=== PATIENT | male | born 1935 | race Caucasian/White ===

== ENCOUNTER → 2018-05-10 | Outpatient (CLI) | payer MEDICARE, OTHER | LOC: CFH 14:48 | PROVIDERS: ATTEND Internal Medicine | DX: M51.25 Other intervertebral disc displacement, thoracolumbar region (principal); M48.061 Spinal stenosis, lumbar region without neurogenic claudication; M43.06 Spondylolysis, lumbar region; M41.86 Other forms of scoliosis, lumbar region | CPT/HCPCS: 72148 ==

== ENCOUNTER 2019-07-18 10:47 | Outpatient (CLI) | payer MEDICARE, OTHER | END 2019-07-18 23:59 | disposition home or self-care (01) | LOC: CFH 10:47 | PROVIDERS: ATTEND Physician Assistant | DX: J84.10 Pulmonary fibrosis, unspecified (principal); J18.9 Pneumonia, unspecified organism; M41.9 Scoliosis, unspecified; E78.1 Pure hyperglyceridemia; I10 Essential (primary) hypertension; M48.07 Spinal stenosis, lumbosacral region; R01.1 Cardiac murmur, unspecified; R97.20 Elevated prostate specific antigen [PSA]; M65.30 Trigger finger, unspecified finger; K40.90 Unilateral inguinal hernia, without obstruction or gangrene, not specified as recurrent; K57.92 Diverticulitis of intestine, part unspecified, without perforation or abscess without bleeding | CPT/HCPCS: 71046 ==